=== PATIENT | female | born 1965 | race Two or more races ===

== ENCOUNTER 2018-09-28 15:23 | Outpatient (CLI) | payer BC | END 2018-09-28 16:43 | disposition home or self-care (01) | LOC: RAD | DX: Z12.31 Encounter for screening mammogram for malignant neoplasm of breast (principal); N95.1 Menopausal and female climacteric states; Z87.891 Personal history of nicotine dependence; M89.8X8 Other specified disorders of bone, other site ==

== ENCOUNTER → 2018-09-28 | Outpatient (CLI) | payer BC | END | disposition home or self-care (01) | LOC: NUCLEAR 13:25 | DX: M81.0 Age-related osteoporosis without current pathological fracture (principal); Z87.891 Personal history of nicotine dependence; E03.8 Other specified hypothyroidism; M85.89 Other specified disorders of bone density and structure, multiple sites; N95.1 Menopausal and female climacteric states; Z12.31 Encounter for screening mammogram for malignant neoplasm of breast ==

== ENCOUNTER 2018-11-29 11:38 | Outpatient (CLI) | payer BC | END 2018-11-29 12:17 | disposition home or self-care (01) | LOC: MRI 11:38 | DX: S76.312A Strain of muscle, fascia and tendon of the posterior muscle group at thigh level, left thigh, initial encounter (principal); S39.82XA Other specified injuries of lower back, initial encounter | CPT/HCPCS: 72196 ==

== ENCOUNTER 2020-08-14 13:52 | Outpatient (CLI) | payer OTHER | END 2020-08-14 14:06 | disposition home or self-care (01) | LOC: MAMO-SONO 13:52 | PROVIDERS: ATTEND Specialist | DX: Z12.31 Encounter for screening mammogram for malignant neoplasm of breast (principal); N60.11 Diffuse cystic mastopathy of right breast; N60.12 Diffuse cystic mastopathy of left breast ==

== ENCOUNTER 2021-12-23 09:56 | Emergency (ER) | payer OTHER ==
[~2021-12-23] VITALS: Ht 162.6 cm; Wt 59.0 kg
[2021-12-23] MEDS ORDERED: SYNTHROID112 MCG PO (10:25)
[2021-12-23] MEDS ORDERED: ENDOMETRIN100 MG VAG (10:25)
== END 2021-12-23 15:47 | disposition home or self-care (01) ==
LOC: ER 09:56
DX: S89.91XA Unspecified injury of right lower leg, initial encounter (principal); W18.30XA Fall on same level, unspecified, initial encounter; Y93.K1 Activity, walking an animal; Y92.832 Beach as the place of occurrence of the external cause; Y99.9 Unspecified external cause status; Z88.0 Allergy status to penicillin

== ENCOUNTER 2022-07-13 09:17 | Outpatient (CLI) | payer OTHER ==
[~2022-07-13 09:17] MED LIST: ENDOMETRIN100 MG VAG; SYNTHROID112 MCG PO
== END 2022-07-13 09:41 | disposition home or self-care (01) ==
LOC: MAMO-SONO 09:17
PROVIDERS: ATTEND Student in an Organized Health Care Education/Training Program
DX: Z12.31 Encounter for screening mammogram for malignant neoplasm of breast (principal); N60.11 Diffuse cystic mastopathy of right breast; N60.12 Diffuse cystic mastopathy of left breast

== ENCOUNTER 2022-11-25 10:24 | Outpatient (CLI) | payer OTHER | END 2022-11-25 10:38 | disposition home or self-care (01) | LOC: SONOGRAMA 10:24 | PROVIDERS: ATTEND Specialist | DX: E04.1 Nontoxic single thyroid nodule (principal); K40.90 Unilateral inguinal hernia, without obstruction or gangrene, not specified as recurrent ==

== ENCOUNTER 2022-11-29 13:15 | Outpatient (CLI) | payer OTHER | END 2022-11-29 13:17 | disposition home or self-care (01) | LOC: NUCLEAR 13:15 | PROVIDERS: ATTEND Specialist | DX: M81.0 Age-related osteoporosis without current pathological fracture (principal); Z88.0 Allergy status to penicillin ==

== ENCOUNTER 2024-07-27 11:18 | Outpatient (CLI) | payer OTHER ==
[~2024-07-27 11:18] MED LIST changes: +CELEBREX200MG PO; +PROMETRIUM200 MG; +SYNTHROID112 MCG; +SYNTHROID50 MCG
[2024-07-27 12:45] LABS: CREATININE SERUM 0.83 mg/dL (0.55-1.02)
== END 2024-07-27 11:24 | disposition home or self-care (01) ==
LOC: LAB 11:18
PROVIDERS: ATTEND Orthopaedic Surgery
DX: N19 Unspecified kidney failure (principal)

== ENCOUNTER → 2024-07-30 | Outpatient (CLI) | payer OTHER | END | disposition home or self-care (01) | LOC: MRI 07:00 | PROVIDERS: ATTEND Orthopaedic Surgery | DX: M25.511 Pain in right shoulder (principal); M75.41 Impingement syndrome of right shoulder | CPT/HCPCS: 73222 ==

== ENCOUNTER 2025-02-21 10:35 | Outpatient (CLI) | payer OTHER | END 2025-02-21 10:45 | disposition home or self-care (01) | LOC: MAMO-SONO 10:35 | PROVIDERS: ATTEND Specialist | DX: N60.11 Diffuse cystic mastopathy of right breast (principal); N60.12 Diffuse cystic mastopathy of left breast ==

== ENCOUNTER 2025-11-01 11:46 | Outpatient (CLI) | payer OTHER | END 2025-11-01 11:58 | disposition home or self-care (01) | LOC: RAD 11:46 | DX: M25.559 Pain in unspecified hip (principal) ==